=== PATIENT | male | born 2000 | race Caucasian/White ===

== ENCOUNTER 2021-09-25 13:31 | Emergency (ER) | payer MEDICAID, SELFPAY ==
[2021-09-25 13:39] VITALS: BP 113/75; PULSE 88; RESP 16; TEMP 36.8; O2SAT 100
[2021-09-25] MEDS: CARBAMIDE PEROXIDE 6.5% OT SOLN 15 ML BTL 5 DROP LEFT EAR (15:39)
--- NOTE | 2021-09-25 16:02 | ED.GENADULT ---
HPI - General Adult General Chief complaint: Ear Stated complaint: Left ear clogged Time Seen by Provider: 09/25/21 14:07 Source: patient Mode of arrival: ambulatory Limitations: no limitations History of Present Illness HPI narrative: Patient presents with clogged ears. He reports trying to rinse them with water and qtips. He states his hearing has been muffled. He denies any drainage from the ear. Related Data Allergies Allergy/AdvReac Type Severity Reaction Status Date / Time No Known Allergies Allergy Verified 09/25/21 14:23 Review of Systems Review of Systems: CONSTITUTIONAL: Denies fever, chills, or sweats. EYES: Denies visual changes, redness, or discharge. ENT: Reports muffled hearing Denies rhinorrhea, congestion, sore throat, or otalgia. CARDIOVASCULAR: Denies chest pain, palpitations, or edema. RESPIRATORY: Denies cough or dyspnea. GASTROINTESTINAL: Denies abdominal pain, nausea, vomiting, or diarrhea. GENITOURINARY: Denies dysuria or hematuria. SKIN: Denies rash or itching. MUSCULOSKELETAL: Denies back pain, joint pain, or myalgia. NEUROLOGIC: Denies headache, numbness, dizziness, or weakness. PSYCHIATRIC: Denies anxiety or depression. Exam Narrative: GENERAL: Well-appearing, well-nourished. HEAD: Normocephalic, atraumatic. EYES: PERRLA and EOMI. ENT: Nares clear, no rhinorrhea or epistaxis. Mucous membranes moist. Oropharynx without tonsillar hypertrophy exudate or other lesions. TMs are not visualized due to cerumen impaction. NECK: Supple. No adenopathy or masses. No vertebral tenderness or loss of ROM. CHEST: Clear to auscultation. No respiratory distress. No wheezes rales or rhonchi HEART: Regular rate and rhythm. Normal peripheral pulses. ABDOMEN: Soft, nontender, nondistended, normal active bowel sounds. No bruises noted. EXTREMITIES: No acute changes in ROM. No edema. SKIN: Warm, dry, no rash. NEURO: No focal deficits. Alert and oriented x3. PSYCH: Normal mood and affect. Course Vital Signs Vital signs: Vital Signs Temperature 98.2 F 09/25/21 13:39 Pulse Rate 88 09/25/21 13:39 Respiratory Rate 16 09/25/21 13:39 Blood Pressure 113/75 09/25/21 13:39 Pulse Oximetry 100 09/25/21 13:39 Temperature 98.2 F 09/25/21 13:39 Pulse Rate 88 09/25/21 13:39 Respiratory Rate 16 09/25/21 13:39 Blood Pressure 113/75 09/25/21 13:39 Pulse Oximetry 100 09/25/21 13:39 Medical Decision Making MDM Narrative Medical decision making narrative: Patient's ears were irrigated by the nurse. Patient denies pain. There were no complications. Large amount of wax was extracted from bilateral ears. He can now hear much better. Patient denies any other needs or concerns. Vital Signs Vital Signs: Vital Signs Temperature 98.2 F 09/25/21 13:39 Pulse Rate 88 09/25/21 13:39 Respiratory Rate 16 09/25/21 13:39 Blood Pressure 113/75 09/25/21 13:39 Pulse Oximetry 100 09/25/21 13:39 Temperature 98.2 F 09/25/21 13:39 Pulse Rate 88 09/25/21 13:39 Respiratory Rate 16 09/25/21 13:39 Blood Pressure 113/75 09/25/21 13:39 Pulse Oximetry 100 09/25/21 13:39 Discharge Plan Discharge Clinical Impression: Cerumen impaction Qualifiers: Laterality: bilateral Qualified Code(s): H61.23 - Impacted cerumen, bilateral Patient Disposition: Home, Self-Care Condition: Improved Instructions: Antibiotic Form Additional Instructions: Follow-up with your primary care or ear nose throat specialist for other evaluation and management. If you have any other questions or concerns. Avoid putting anything into your ear as you can damage your eardrum. Follow-up/Referrals: Korey Gore MD [Physician] - PHYSICIAN,TERRITORY REPRESENTATIVE [Primary Care Provider] - Time of Disposition: 16:17
== END 2021-09-25 16:41 | disposition home or self-care (01) ==
PROVIDERS: Emergency Provider Emergency Medicine
DX: H61.23 Impacted cerumen, bilateral (principal)
CPT/HCPCS: 99283; A9270